=== PATIENT | female | born 1995 | race Two or more races ===

== ENCOUNTER 2018-12-03 10:19 | Day surgery (SDC) | payer MEDICAID ==
[~2018-12-03 10:19] MED LIST: CEFAZOLIN 1 GM/50 ML (PMX) 50 ML IVPB
[2018-12-03] MEDS: SOD CHLORIDE 0.9% 1,000 ML IV (11:00)
[2018-12-03 11:49] LABS: ALANINE AMINOTRANSFERASE 11 IU/L (13-69); ALBUMIN 4.8 g/dl (3.3-4.9); ALKALINE PHOSPHATASE 51 IU/L (42-121); ANION GAP 14 (5-13); ASPARTATE AMINO TRANSFERASE 27 IU/L (15-46); BILIRUBIN,INDIRECT 0.2 mg/dl (0-1.1); BILIRUBIN,TOTAL 0.2 mg/dl (0.2-1.3); BLOOD UREA NITROGEN 16 mg/dl (7-20); CALCIUM 9.9 mg/dl (8.4-10.2); CARBON DIOXIDE 24 mmol/L (21-31); CHLORIDE 104 mmol/L (97-110); CREATININE 0.55 mg/dl (0.44-1.00); Estimated GFR > 60 mL/min (>60); GLUCOSE 85 mg/dl (70-220); POTASSIUM 4.5 mmol/L (3.5-5.1); SODIUM 142 mmol/L (135-144); TOTAL PROTEIN 8.8 g/dl (6.1-8.1)
[2018-12-03 11:51] LABS: INR 0.85; PARTIAL THROMBOPLASTIN TIME 30.8 Sec (23.0-35.0); PROTIME 11.7 Sec (11.9-14.9); PT RATIO 0.9
[2018-12-03] MEDS ORDERED: PROPOFOL 20 ML ×2 (12:26→12:46)
[2018-12-03] MEDS ORDERED: MIDAZOLAM 1 MG/ML 2 ML INJ (12:26)
[2018-12-03] MEDS ORDERED: CEFAZOLIN 1 GM INJ (12:26)
[2018-12-03] MEDS ORDERED: KETOROLAC 30 MG INJ (12:27)
[2018-12-03] MEDS ORDERED: METOCLOPRAMIDE 10 MG INJ (12:27)
[2018-12-03] MEDS ORDERED: ONDANSETRON 4 MG INJ (12:27)
[2018-12-03] MEDS ORDERED: ONDANSETRON 4 MG INJ IV (12:30)
[2018-12-03] MEDS ORDERED: MEPERIDINE 25 MG INJ IV (12:30)
[2018-12-03] MEDS ORDERED: HYDROmorphONE 1 MG/5 ML IV SYRINGE IV ×3 (12:30)
[2018-12-03] MEDS ORDERED: OXYCODONE/ACETAMINOPHEN (5/325) TAB PO ×2 (12:30)
[2018-12-03] MEDS ORDERED: DIPHENHYDRAMINE 50 MG INJ IV (12:30)
[2018-12-03] MEDS ORDERED: FENTAnyl 50 MCG/ML VIAL (12:33)
[2018-12-03] MEDS ORDERED: HYDROmorphONE 2 MG/ML SYG (12:40)
== END 2018-12-03 15:10 | disposition home or self-care (01) ==
LOC: SDS 10:19
DX: D24.1 Benign neoplasm of right breast (principal); J45.909 Unspecified asthma, uncomplicated
CPT/HCPCS: 19120; 80053; 85610; 85730; 88307